=== PATIENT | female | born 1950 | race Caucasian/White ===

== ENCOUNTER 2016-11-10 20:05 | Observation (INO) | payer OTHER ==
[~2016-11-10] VITALS: Ht 162.6 cm; Wt 72.1 kg
[2016-11-10 20:28] LABS: HEMATOCRIT 29.1 % (36.0-46.0); MCH 25.7 PG (29.0-34.0); MCHC 31.6 G/DL (30.0-36.0); MCV 81.3 FL (83-99); PLATELET COUNT 271 K/uL (156-360); RBC DIS.WIDTH-CV 15.4 % (11.8-14.6); RBC DIS.WIDTH-SD 45.7 % (39-53); RED BLOOD COUNT 3.58 M/uL (3.80-5.20); WHITE BLOOD COUNT 8.3 K/uL (4.1-10.2)
[2016-11-10 20:43] LABS: CHLORIDE 102 mEq/L (99-109); POTASSIUM 3.7 mEq/L (3.7-5.4); SODIUM 136 mEq/L (136-147)
[2016-11-10 20:44] LABS: GLUCOSE 94 mg/dL (70-99)
[2016-11-10 20:46] LABS: ANION GAP 10 MEQ/L (2-14)
[2016-11-10 20:48] LABS: GFR ESTIMATE (CALCULATED) 59 mL/min/
[2016-11-10 20:49] LABS: UREA NITROGEN (BUN) 18 mg/dL (9-23)
[2016-11-10 20:54] LABS: TROP-I INTERPRETATION NEGATIVE; TROPONIN-I 0.03 ng/mL (0.0-0.30)
[2016-11-10] MEDS ORDERED: PLAVIX75 MG PO (21:37)
[2016-11-10] MEDS ORDERED: CRESTOR40 MG PO (21:37)
[2016-11-10] MEDS ORDERED: NITROSTAT0.4 MG SL (21:37)
[2016-11-10] MEDS ORDERED: METFORMIN HCL500 MG PO (21:37)
[2016-11-10] MEDS ORDERED: HYDROCHLOROTHIA25 MG PO (21:37)
[2016-11-10] MEDS ORDERED: CYANOCOBALAM1000 MCG PO (21:37)
[2016-11-10] MEDS ORDERED: FISH OIL 1,0001 EAC7 PO (21:38)
[2016-11-10] MEDS ORDERED: LO-DOSE ASPIRIN81 M2 PO (21:38)
[2016-11-10] MEDS ORDERED: AMLODIPINE-BEN1 EAC5 PO (21:38)
[2016-11-10] MEDS ORDERED: NEXIUM 24HR20 MG PO (21:38)
[2016-11-10] MEDS ORDERED: VITAMIN E100 UNIT PO (21:38)
[2016-11-10] MEDS ORDERED: K2 PLUS D3 TAB1 EACH PO (21:38)
[2016-11-10 23:50] VITALS: BP 134/63
[2016-11-11 03:27] LABS: TROP-I INTERPRETATION NEGATIVE; TROPONIN-I 0.03 ng/mL (0.0-0.30)
[2016-11-11 04:00] VITALS: BP 120/57
[2016-11-11 04:59] LABS: HDL CHOLESTEROL 48 MG/DL (Desirable>=50); LDL CHOLESTEROL 79 mg/dL (Desirable<100); NON-HDL CHOLESTEROL 89 mg/dL (Desirable<160); TOTAL CHOLESTEROL 137 mg/dL (Desirable<200); TRIGLYCERIDES 52 MG/DL (Normal: <150)
[2016-11-11 08:00] VITALS: BP 130/62
[2016-11-11 08:14] LABS: POINT-OF-CARE METER ID UU13113700
[2016-11-11 08:44] LABS: TROP-I INTERPRETATION NEGATIVE; TROPONIN-I 0.04 ng/mL (0.0-0.30)
[2016-11-11] MEDS ORDERED: MAALOX ADVANCE355 ML PO (10:39)
== END 2016-11-11 11:46 | disposition home or self-care (01) ==
LOC: EDBD 20:05 → EME 20:05 → EDOF 22:14 → 5WEST 22:14
PROVIDERS: Internal Medicine; Physician Assistant Medical
DX: R07.89 Other chest pain (principal); I44.7 Left bundle-branch block, unspecified; I10 Essential (primary) hypertension; E11.9 Type 2 diabetes mellitus without complications; D64.9 Anemia, unspecified; I25.10 Atherosclerotic heart disease of native coronary artery without angina pectoris; Z95.5 Presence of coronary angioplasty implant and graft; I25.2 Old myocardial infarction; K21.9 Gastro-esophageal reflux disease without esophagitis; F17.200 Nicotine dependence, unspecified, uncomplicated
CPT/HCPCS: 71020; 80048; 80061; 82948; 84484; 85027; 87493; 93005; 99281; 99285; G0378